=== PATIENT | female | born 1980 | race Two or more races ===

== ENCOUNTER 2019-08-16 16:15 | Emergency (ER) | payer OTHER ==
[~2019-08-16] VITALS: Ht 152.4 cm; Wt 55.8 kg
[~2019-08-16 16:15] MED LIST: NO MEDS TAKEN
== END 2019-08-17 00:50 | disposition home or self-care (01) ==
LOC: ER 16:15
DX: K52.9 Noninfective gastroenteritis and colitis, unspecified (principal); E86.0 Dehydration; R10.84 Generalized abdominal pain

== ENCOUNTER 2019-09-05 18:34 | Inpatient (IN) | payer OTHER ==
[~2019-09-05] VITALS: Ht 152.4 cm; Wt 54.0 kg
== END 2019-09-12 09:52 | disposition home or self-care (01) | DRG 387 ==
LOC: ER 18:34 → SURH 09-06 08:20
PROVIDERS: ADMIT Internal Medicine Cardiovascular Disease
PROC: 8E0ZXY6 Isolation (ICD-10-PCS; principal; 2019-09-06)
DX: K51.018 Ulcerative (chronic) pancolitis with other complication (principal); I88.0 Nonspecific mesenteric lymphadenitis; E86.0 Dehydration

== ENCOUNTER 2021-04-11 14:05 | Inpatient (IN) | payer OTHER ==
[~2021-04-11] VITALS: Ht 162.6 cm; Wt 63.5 kg
[2021-04-12] MEDS ORDERED: MESALAMINE DR400 MG (08:09)
== END 2021-04-15 11:16 | disposition home or self-care (01) | DRG 387 ==
LOC: SURH 14:05 → SEC-K 14:05 → SURH 16:49
PROVIDERS: ADMIT Internal Medicine Cardiovascular Disease; ATTEND Internal Medicine Cardiovascular Disease
PROC: BW21ZZZ Computerized Tomography (CT Scan) of Abdomen and Pelvis (ICD-10-PCS; 2021-04-11)
PROC: 02HV33Z Insertion of Infusion Device into Superior Vena Cava, Percutaneous Approach (ICD-10-PCS; principal; 2021-04-12)
DX: K51.811 Other ulcerative colitis with rectal bleeding (principal); E86.0 Dehydration
CPT/HCPCS: 240

== ENCOUNTER 2021-10-25 11:52 | Emergency (ER) | payer OTHER ==
[~2021-10-25] VITALS: Ht 157.5 cm; Wt 54.4 kg
[~2021-10-25 11:52] MED LIST changes: +MESALAMINE DR400 MG
== END 2021-10-25 18:44 | disposition home or self-care (01) ==
LOC: ER 11:52
DX: B34.9 Viral infection, unspecified (principal); R53.81 Other malaise; Z20.822 Contact with and (suspected) exposure to COVID-19